=== PATIENT | male | born 1970 | race Caucasian/White ===

== ENCOUNTER 2022-07-31 17:07 | Emergency (ER) | payer OTHER ==
[~2022-07-31] VITALS: Ht 165.1 cm; Wt 90.9 kg
[2022-07-31 17:08] VITALS: BP 156/88
[2022-07-31] MEDS ORDERED: GLYX1TAB3 (17:23)
[2022-07-31] MEDS ORDERED: ATOR40TA75 (17:23)
[2022-07-31] MEDS ORDERED: METF-839 (17:23)
[2022-07-31] MEDS ORDERED: [UNRECOGNIZED DRUG - CODE] (17:23)
[2022-07-31] MEDS ORDERED: METO1TAB32 (17:23)
[2022-07-31] MEDS ORDERED: TRIA37.577 (17:23)
[2022-07-31] MEDS ORDERED: CEPHALEXIN 500 MG CAP PO ONE (18:30)
[2022-07-31] MEDS ORDERED: BOOSTRIX/ADACEL VACCINE (DIPHTH/PERTUSS/ACELL/TETANUS) 0.5ML SYR IM.IMMUN ONE (18:30)
[2022-07-31] MEDS ORDERED: LIDOCAINE W/EPINEPHRINE 1% 20ML VIAL SC ONE (19:00)
[2022-07-31] MEDS ORDERED: NEOSPORIN OINT 0.9 GM PKT TOP ONE (19:50)
[2022-07-31] MEDS ORDERED: CEPH500C PO (19:52)
== END 2022-07-31 20:30 | disposition home or self-care (01) ==
LOC: M ED 17:07
DX: S61.411A Laceration without foreign body of right hand, initial encounter (principal); W23.0XXA Caught, crushed, jammed, or pinched between moving objects, initial encounter; Y92.099 Unspecified place in other non-institutional residence as the place of occurrence of the external cause; I10 Essential (primary) hypertension; E78.5 Hyperlipidemia, unspecified; Z79.899 Other long term (current) drug therapy